=== PATIENT | female | born 1990 | race Caucasian/White ===

== ENCOUNTER 2020-05-05 08:43 | Emergency (ER) | payer OTHER ==
--- NOTE | 2020-05-05 09:26 | EDM.PDOC ---
ED HPI GENERAL MEDICAL PROBLEM - General Chief Complaint: REFRIGERATION INSULATOR Problem Stated Complaint: 10 WKS, SPOTTING Time Seen by Provider: 05/05/20 09:25 Source of Information: Reports: Patient History Limitations: Reports: No Limitations - History of Present Illness INITIAL COMMENTS - FREE TEXT/NARRATIVE: pt arrived with a history of spotting this am. She did not have cramping. She awan d the one episode and no further problem. Onset: Today, Sudden Duration: Hour(s): Location: Reports: Other ( vaginal spotting. ) - Related Data Allergies Allergy/AdvReac Type Severity Reaction Status Date / Time No Known Allergies Allergy Verified 05/05/20 09:09 Home Meds: Home Meds Vit #76/Iron,Carb/Fa [Prenatabs Rx] 1 each PO DAILY 05/05/20 [History] Past Medical History REFRIGERATION INSULATOR History: Reports: Other REFRIGERATION INSULATOR History: - Infectious Disease History Infectious Disease History: Reports: None - Past Surgical History Female Surgical History: Reports: Section Social & Family History - Tobacco Use Tobacco Use Status *Q: Never Tobacco User - Caffeine Use Caffeine Use: Reports: Coffee - Recreational Drug Use Recreational Drug Use: No ED ROS GENERAL - Review of Systems Review Of Systems: See Below Constitutional: Reports: No Symptoms HEENT: Reports: No Symptoms Respiratory: Reports: No Symptoms Cardiovascular: Reports: No Symptoms Endocrine: Reports: No Symptoms GI/Abdominal: Reports: No Symptoms : Reports: Other ( vag bleeding--spotting on a 10 week preg. ) Musculoskeletal: Reports: No Symptoms Skin: Reports: No Symptoms Neurological: Reports: No Symptoms Psychiatric: Reports: No Symptoms ED EXAM - Physical Exam Exam: See Below Text/Narrative:: pt arrived having some spotting which started this am. Exam Limited By: No Limitations General Appearance: Alert, No Apparent Distress, Anxious, Other (pt is not cramping. ) Ears: Normal TMs Nose: Normal Inspection Throat/Mouth: Normal Inspection Head: Atraumatic Neck: Normal Inspection Respiratory/Chest: No Respiratory Distress Cardiovascular: Regular Rate, Rhythm GI/Abdominal Exam: Soft, Non-Tender Rectal Exam: Other (no heart tonescould be heard. ) Back Exam: CVA Tenderness (L) Extremities: Normal Inspection Neurological: Alert, Oriented, Normal Cognition Course - Vital Signs Last Recorded V/S: Last Vital Signs Temp 36.6 C 05/05/20 09:05 Pulse 96 05/05/20 09:05 Resp 18 05/05/20 09:05 BP 131/81 05/05/20 09:05 Pulse Ox 96 05/05/20 09:05 - Orders/Labs/Meds Labs: Laboratory Tests 05/05/20 05/05/20 Range/Units 09:24 09:57 WBC 12.0 H (4.5-11.0) K/uL RBC 4.61 (3.30-5.50) M/uL Hgb 13.8 (12.0-15.0) g/dL Hct 40.0 (36.0-48.0) % MCV 87 (80-98) fL MCH 30 (27-31) pg MCHC 35 (32-36) % Plt Count 347 (150-400) K/uL Neut % (Auto) 78 H (36-66) % Lymph % (Auto) 16 L (24-44) % [place] % (Auto) 5 (2-6) % Eos % (Auto) 1 L (2-4) % Baso % (Auto) 0 (0-1) % Urine Color Yellow (YELLOW) Urine Appearance Slightly cloudy A (CLEAR) Urine pH 6.0 (5.0-8.0) Ur Specific [place] 1.025 (1.008-1.030) Urine Protein Negative (NEGATIVE) mg/dL Urine Glucose (UA) Negative (NEGATIVE) mg/dL Urine Ketones Negative (NEGATIVE) mg/dL Urine Occult Blood Moderate H (NEGATIVE) Urine Nitrite Negative (NEGATIVE) Urine Bilirubin Negative (NEGATIVE) Urine Urobilinogen 0.2 (0.2-1.0) EU/dL Ur Leukocyte Esterase Negative (NEGATIVE) Urine RBC 5-10 H (0-5) Urine WBC 0-5 (0-5) Ur Epithelial Cells Moderate Amorphous Sediment Moderate Urine Bacteria Moderate Urine Mucus Many - Re-Assessments/Exams Free Text/Narrative Re-Assessment/Exam: 05/05/20 10:21 pt had normal looking lab work. Her Us did reveal a small subchrionic bleed. The fetus looked good with good heart activity. Departure - Departure Time of Disposition: 10:27 Disposition: Home, Self-Care 01 Condition: Fair Clinical Impression: Subchorionic hemorrhage in first trimester, 10 weeks gestation of - Discharge Information Instructions: Vaginal Bleeding During , First Trimester, Subchorionic Hematoma Referrals: Karina Pearson CNM [Primary Care Provider] - Forms: ED Department Discharge Care Plan Goals: low activity, rtc if heavy bleeding, appt with Laly Pearson Wed or wednesday. Sepsis Event Note (ED) - Evaluation Sepsis Screening Result: No Definite Risk
--- NOTE | 2020-05-05 11:02 | CRLUS ---
INDICATION: Rectal by. female. TECHNIQUE: Obstetrical ultrasound. FINDINGS: Uterus 9.9 x 5.6 x 7.8 cm and is enlarged. Right ovary not seen. Left ovary measures 3.0 x 1.7 x 2.5 cm. No free fluid in the pelvis. Single live intrauterine with mean gestational age of 9 weeks 4 days by today`s ultrasound corresponding to an estimated delivery of 12/04/2020. This is 2 days behind the gestational age predicted by last menstrual period. Specifically an intrauterine gestational containing an embryo with cardiac activity of the embryo at 183 beats per minute. Left ovary is grossly normal. 2.6 x 2.3 x 1.9 cm. Hyperechoic mass along the left aspect of the gestational sac likely an acute hematoma/subchorionic bleed. Most subchorionic bleeds are hypoechoic. This mass does have some areas of hypoechogenicity within it. No blood flow seen within this. remainder negative. IMPRESSION: Single live intrauterine with mean gestational age of 9 weeks 4 days corresponding estimated delivery of December 04, 2020. 2.6 cm mixed echogenicity solid masslike area along the left aspect of the gestational sac is likely an acute hematoma and/or subchorionic hemorrhage. No other significant abnormalities. Dictated by Montrell Burr MD @ May 05 2020 10:56AM Signed by Dr. Montrell Burr @ May 05 2020 11:00AM
== END 2020-05-05 10:48 | disposition home or self-care (01) ==
LOC: JP.ED 08:43
DX: O20.8 Other hemorrhage in early pregnancy (principal); Z3A.10 10 weeks gestation of pregnancy
CPT/HCPCS: 36415; 76815; 81001; 85025; 99283; 99284-25

== ENCOUNTER 2022-08-25 20:56 | Emergency (ER) | payer OTHER ==
[2022-08-25] MEDS ORDERED: Sodium Chloride 0.9% 1,000 ML IV SCH (21:30)
[2022-08-25 21:59] LABS: ESTIMATED GFR 125 mL/min (>60)
== END 2022-08-25 23:30 | disposition home or self-care (01) ==
LOC: JP.ED 20:56
DX: O47.00 False labor before 37 completed weeks of gestation, unspecified trimester (principal); Z3A.13 13 weeks gestation of pregnancy
CPT/HCPCS: 36415; 80053; 83735; 84112; 85025; 96360; 99284; J7030

== ENCOUNTER 2022-08-26 23:47 | Emergency (ER) | payer OTHER | END 2022-08-27 00:30 | disposition home or self-care (01) | LOC: JP.ED 23:47 | DX: O20.9 Hemorrhage in early pregnancy, unspecified (principal); Z3A.13 13 weeks gestation of pregnancy | CPT/HCPCS: 99282; 99283 ==